=== PATIENT | male | born 1950 | race Caucasian/White ===

== ENCOUNTER 2018-03-11 11:51 | Outpatient (REF) | payer MEDICARE, SELFPAY ==
[2018-03-12 00:04] LABS: COMMENT (LAB VIEW ONLY) 425.42 mg/dL; Microalb ug/mg Crea 4.8 ug/mg Cr
== END 2018-03-11 11:52 ==
LOC: NCHCN 11:51
PROVIDERS: PCP Internal Medicine; Visit Provider Internal Medicine
DX: E11.9 Type 2 diabetes mellitus without complications (principal)
CPT/HCPCS: 82043; 82570

== ENCOUNTER 2018-06-17 09:38 | Outpatient (REF) | payer MEDICARE, SELFPAY ==
[2018-06-17 20:04] LABS: ALT 47 U/L (12-78); Anion Gap 7.5 mmol/L (3-11); BUN 16 mg/dL (7-18); CO2 29.5 mmol/L (21.0-32.0); Calcium 9.1 mg/dL (8.5-10.1); Chloride 106 mmol/L (98-107); Cholesterol 146 mg/dL (50-200); Glucose 139 mg/dL (70-100); HDL Cholesterol 47 mg/dL (40-60); LDL CHOLESTEROL 85 mg/dL (<100); Potassium 4.2 mmol/L (3.5-5.1); Sodium 143 mmol/L (136-145); Triglyceride 73 mg/dL (30-150)
[2018-06-17 20:15] LABS: Creatine Kinase 131 U/L (39-308)
== END 2018-06-17 09:58 ==
LOC: NCHCN 09:38
PROVIDERS: PCP Internal Medicine; Visit Provider Internal Medicine
DX: E78.5 Hyperlipidemia, unspecified (principal)
CPT/HCPCS: 80048; 80061; 82550; 83721; 84460

== ENCOUNTER 2019-03-20 22:26 | Outpatient (REF) | payer MEDICARE, SELFPAY ==
[2019-03-20 19:41] LABS: Anion Gap 7.8 mmol/L (3-11); BUN 19 mg/dL (7-18); C-Reactive Protein 0.05 mg/dL (0.0-0.3); CO2 30.2 mmol/L (21.0-32.0); CREATININE 1.28 mg/dL (0.70-1.30); Calcium 7.7 mg/dL (8.5-10.1); Chloride 106 mmol/L (98-107); Creatine Kinase 165 U/L (39-308); Estimated GFR 56.06 (mL/min/1.73m2); Glucose 113 mg/dL (70-100); Potassium 4.2 mmol/L (3.5-5.1); Sodium 144 mmol/L (136-145)
[2019-03-20 20:06] LABS: ESR 5 mm/hr (1-20)
== END 2019-03-20 22:46 ==
LOC: NCHCN 22:26
PROVIDERS: PCP Internal Medicine; Visit Provider Internal Medicine
DX: E11.9 Type 2 diabetes mellitus without complications (principal); E78.5 Hyperlipidemia, unspecified; M79.10 Myalgia, unspecified site
CPT/HCPCS: 80048; 82550; 85652; 86140

== ENCOUNTER 2019-07-25 12:19 | Outpatient (REF) | payer MEDICARE, SELFPAY ==
[2019-07-25 20:00] LABS: Abs Immature Grans 0.01 k/cumm (0.0-0.09); Absolute Basophil Count 0.04 k/cumm (0.0-0.2); Absolute Eosinophil Count 0.14 k/cumm (0.0-0.7); Absolute Lymphocyte Count 1.52 k/cumm (1.2-3.4); Absolute Neutrophil Count 2.78 k/cumm (1.2-6.7); Basophils % 0.8; Eosinophils % 2.8; HCT 45.1 % (40.0-50.0); HGB 15.1 g/dL (13.5-17.5); Immature Grans % 0.2 %; Lymphocytes % 30.5; Mean Corp. HGB Concentration 33.5 g/dL (32.0-36.0); Mean Corpuscular Hemoglobin 29.7 pg (27.0-33.0); Mean Corpuscular Volume 88.8 fL (80-95); Mean Platelet Volume 10.8 fL (8.0-11.0); Neutrophils % 55.7; Platelet Count 176 x1000/uL (130-400); RBC 5.08 m/cumm (4.50-6.00); RBC Distribution Width 13.5 % (11.8-14.1); White Blood Cell Count 4.99 k/cumm (4.4-10.8)
[2019-07-25 20:08] LABS: ALT 50 U/L (16-63); AST 23 U/L (15-37); Albumin 4.2 g/dL (3.4-5.0); Alkaline Phosphatase 69 U/L (46-116); Anion Gap 10.2 mmol/L (3-11); BUN 18 mg/dL (7-18); Bilirubin, Total 1.1 mg/dL (0.2-1.0); CO2 27.8 mmol/L (21.0-32.0); CREATININE 1.23 mg/dL (0.70-1.30); Calcium 9.3 mg/dL (8.5-10.1); Chloride 105 mmol/L (98-107); Estimated GFR 58.69 (mL/min/1.73m2); Glucose 128 mg/dL (74-106); Potassium 4.1 mmol/L (3.5-5.1); Sodium 143 mmol/L (136-145)
[2019-07-28 11:23] LABS: PSA, Screening 1.3 ng/mL (0.0-4.5)
== END 2019-07-25 12:39 ==
LOC: NCHCN 12:19
PROVIDERS: PCP Internal Medicine; Visit Provider Physician Assistant
DX: M79.10 Myalgia, unspecified site (principal); M54.5 Low back pain; Z12.5 Encounter for screening for malignant neoplasm of prostate; N40.0 Benign prostatic hyperplasia without lower urinary tract symptoms
CPT/HCPCS: 80053; 84153; 85025

== ENCOUNTER 2019-10-06 09:02 | Outpatient (REF) | payer MEDICARE, SELFPAY | END 2019-10-06 09:22 | LOC: NCHCN 09:02 | PROVIDERS: PCP Internal Medicine; Visit Provider Internal Medicine | DX: F52.21 Male erectile disorder (principal) | CPT/HCPCS: 84402; 84403 ==

== ENCOUNTER 2019-10-09 10:26 | Outpatient (REF) | payer MEDICARE, SELFPAY ==
[2019-10-12 16:41] LABS: Testosterone, Free 6.14 ng/dL (3.47-13.0); Testosterone, Total 341 ng/dL (240-950)
== END 2019-10-09 10:46 ==
LOC: NCHCN 10:26
PROVIDERS: PCP Internal Medicine; Visit Provider Internal Medicine
DX: F52.21 Male erectile disorder (principal)
CPT/HCPCS: 84402; 84403

== ENCOUNTER 2020-04-06 00:41 | Outpatient (CLI) | payer MEDICARE, MEDICAID, SELFPAY ==
--- NOTE | 2020-04-06 10:39 | DI.RAD_ITS ---
EXAM: XR FOOT LT COMPLETE CLINICAL HISTORY: LT FOOT AND ANKLE PAIN,M79.672,M25.572, INJURY, SWELLING, BRUISE, ? FX TECHNIQUE: COMPARISON: CR XR ANKLE LT COMPLETE from 04/06/2020 FINDINGS: Three views of the foot and three views of the ankle were obtained. The ankle mortise is well mainta ined. Small accessory ossicles noted adjacent to the medial malleolus. Mild marginal osteophyte for mation of joints of the ankle. 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 There is no evidence of an acute fracture or dislocation involving the foot or ankle. IMPRESSION: RADIATION DOSE DELIVERED: Total DLP
== END 2020-04-06 01:01 ==
PROVIDERS: PCP Internal Medicine; Visit Provider Physician Assistant
DX: M79.672 Pain in left foot (principal); M85.572 Aneurysmal bone cyst, left ankle and foot; M19.072 Primary osteoarthritis, left ankle and foot
CPT/HCPCS: 73610; 73630

== ENCOUNTER 2020-05-07 04:50 | Outpatient (CLI) | payer MEDICARE, MEDICAID, SELFPAY ==
--- NOTE | 2020-05-07 11:20 | DI.MRI_ITS ---
EXAM: MR LOWER JOINT LT WO CLINICAL HISTORY: LT ANKLE PAIN,M25.572,S/P INJURY TECHNIQUE: Multiplanar multisequence MRI was performed without intravenous contrast. COMPARISON: CR XR ANKLE LT COMPLETE from 04/06/2020 FINDINGS: BONES/JOINTS: No acute fracture. Marrow edema is seen in the distal fibula and the proximal talus. No bone lesions identified. The talar dome is smooth. The ankle mortise is maintained. No joint effus ion is present. There is hyperintense signal seen in the os trigonum and the adjacent talus. LIGAMENTS: The tibiofibular and calcaneofibular ligaments are intact. The talofibular ligaments are i ntact. The deltoid ligament is intact. The syndesmosis is unremarkable. Sinus tarsi is normal. MUSCULOTENDINOUS STRUCTURES: Achilles tendon: There is linear increased signal seen in the Achilles tendon which may represent a p artial tear. Plantar fascia: Unremarkable. Anterior Extensor tendons: Unremarkable. Posterior Tibialis: Unremarkable. Flexor Digitorum longus: Unremarkable. Flexor Hallicus longus: Unremarkable. Peroneus longus: There is some fluid around the peroneus longus tendon which may represent a tenosyno vitis. Peroneus brevis:Unremarkable. SOFT TISSUES: Mild edema seen in the soft tissues laterally. OTHER FINDINGS: None. IMPRESSION: 1. No evidence of an occult fracture. 2. 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 3. Fluid around the peroneus longus tendon which may represent a tenosynovitis. 4. Hyperintense linear signal in the Achilles tendon which may represent a partial tear. DATA REPOSITORY:
== END 2020-05-07 05:10 ==
PROVIDERS: PCP Internal Medicine; Visit Provider Physician Assistant
DX: M25.572 Pain in left ankle and joints of left foot (principal); R93.6 Abnormal findings on diagnostic imaging of limbs
CPT/HCPCS: 73721

== ENCOUNTER 2020-06-21 16:55 | Outpatient (REF) | payer MEDICARE, MEDICAID, SELFPAY ==
[2020-06-21 19:42] LABS: ALT 52 U/L (16-63); Anion Gap 7.2 mmol/L (3-11); BUN 26 mg/dL (7-18); CO2 25.8 mmol/L (21.0-32.0); CREATININE 1.41 mg/dL (0.70-1.30); Calcium 8.9 mg/dL (8.5-10.1); Chloride 108 mmol/L (98-107); Estimated GFR 49.99 (mL/min/1.73m2); Glucose 121 mg/dL (74-106); LDL CHOLESTEROL 70 mg/dL (<100); Potassium 3.8 mmol/L (3.5-5.1); Sodium 141 mmol/L (136-145)
== END 2020-06-21 17:15 ==
LOC: NCHCN 16:55
PROVIDERS: PCP Internal Medicine; Visit Provider Internal Medicine
DX: M25.572 Pain in left ankle and joints of left foot (principal); N40.0 Benign prostatic hyperplasia without lower urinary tract symptoms; E11.9 Type 2 diabetes mellitus without complications; I10 Essential (primary) hypertension
CPT/HCPCS: 80048; 83721; 84460

== ENCOUNTER 2021-06-27 18:07 | Outpatient (REF) | payer MEDICARE, MEDICAID, SELFPAY ==
[2021-06-27 19:52] LABS: ALT 51 U/L (16-63); Anion Gap 9.5 mmol/L (3-11); BUN 20 mg/dL (7-18); CO2 27.5 mmol/L (21.0-32.0); CREATININE 1.1 mg/dL (0.70-1.30); Calcium 9.2 mg/dL (8.5-10.1); Chloride 104 mmol/L (98-107); Glucose 118 mg/dL (74-106); LDL CHOLESTEROL 60 mg/dL (<100); Potassium 4.2 mmol/L (3.5-5.1); Sodium 141 mmol/L (136-145)
== END 2021-06-27 18:08 | disposition home or self-care (01) ==
LOC: NCHCN 18:07
PROVIDERS: PCP Internal Medicine; Visit Provider Internal Medicine
DX: I10 Essential (primary) hypertension (principal); E11.9 Type 2 diabetes mellitus without complications
CPT/HCPCS: 80048; 83721; 84460

== ENCOUNTER 2021-12-26 13:08 | Outpatient (REF) | payer MEDICARE, MEDICAID, SELFPAY ==
[2021-12-26 19:38] LABS: COMMENT (LAB VIEW ONLY) 206.25 mg/dL; Microalb ug/mg Crea 6.3 ug/mg Cr
== END 2021-12-26 13:09 | disposition home or self-care (01) ==
LOC: NCHCN 13:08
PROVIDERS: PCP Internal Medicine; Visit Provider Internal Medicine
DX: I10 Essential (primary) hypertension (principal); E11.9 Type 2 diabetes mellitus without complications; N18.2 Chronic kidney disease, stage 2 (mild)
CPT/HCPCS: 82043; 82570

== ENCOUNTER 2022-07-10 18:13 | Outpatient (REF) | payer MEDICARE, SELFPAY ==
[2022-07-10 19:24] LABS: Anion Gap 6.1 mmol/L (3-11); BUN 18 mg/dL (7-18); CO2 30.9 mmol/L (21.0-32.0); CREATININE 1.1 mg/dL (0.70-1.30); Calcium 9.4 mg/dL (8.5-10.1); Calculated LDL 62 mg/dL (<100); Chloride 105 mmol/L (98-107); Cholesterol 129 mg/dL (<200); Estimated GFR 72.22 (mL/min/1.73m2); Glucose 116 mg/dL (74-106); HDL Cholesterol 48 mg/dL (40-60); Potassium 3.6 mmol/L (3.5-5.1); Sodium 142 mmol/L (136-145); Triglyceride 95 mg/dL (<150)
== END 2022-07-10 18:14 | disposition home or self-care (01) ==
LOC: NCHCN 18:13
PROVIDERS: PCP Internal Medicine; Visit Provider Internal Medicine
DX: E11.9 Type 2 diabetes mellitus without complications (principal); E78.5 Hyperlipidemia, unspecified; K40.90 Unilateral inguinal hernia, without obstruction or gangrene, not specified as recurrent; M47.892 Other spondylosis, cervical region
CPT/HCPCS: 80048; 80061

== ENCOUNTER 2023-07-12 14:08 | Outpatient (REF) | payer MEDICARE, MEDICAID, SELFPAY ==
[2023-07-12 19:32] LABS: Anion Gap 5.1 mmol/L (3-11); BUN 21 mg/dL (7-18); CO2 30.9 mmol/L (21.0-32.0); CREATININE 1.1 mg/dL (0.70-1.30); Calcium 9.3 mg/dL (8.5-10.1); Calculated LDL 47 mg/dL (<100); Chloride 107 mmol/L (98-107); Cholesterol 100 mg/dL (<200); Estimated GFR 71.77 (mL/min/1.73m2); Glucose 143 mg/dL (74-106); HDL Cholesterol 44 mg/dL (40-60); Potassium 4.1 mmol/L (3.5-5.1); Sodium 143 mmol/L (136-145); Triglyceride 48 mg/dL (<150)
== END 2023-07-12 14:09 | disposition home or self-care (01) ==
LOC: NCHCN 14:08
PROVIDERS: PCP Internal Medicine; Visit Provider Internal Medicine
DX: I10 Essential (primary) hypertension (principal); R73.09 Other abnormal glucose
CPT/HCPCS: 80048; 80061; 83036

== ENCOUNTER 2023-10-19 20:43 | Outpatient (REF) | payer OTHER, MEDICAID, MEDICARE, SELFPAY ==
[2023-10-19 21:19] LABS: Bilirubin Negative (Negative); Blood Negative (Negative); Clarity Sl Cloudy (Clear); Glucose Negative (Negative); Ketones Trace mg/dL (Negative); Leukocyte Esterase Negative (Negative); Nitrite Negative (Negative); pH 7.5 (5-8)
[2023-10-19 23:47] LABS: Bacteria Rare HPF (Negative); C & S Indicated? C&S Done As Ordered; Casts Negative LPF (Negative); Crystals Negative HPF (Negative); Epithelial Cells Negative HPF (Negative); Mucus Negative (Negative); RBC Negative HPF (0-2); WBC Negative HPF (0-5)
== END 2023-10-19 20:44 | disposition home or self-care (01) ==
LOC: NCHCN 20:43
PROVIDERS: PCP Internal Medicine; Visit Provider Internal Medicine
DX: R82.998 Other abnormal findings in urine (principal); M54.89 Other dorsalgia
CPT/HCPCS: 81003; 81015; 87086

== ENCOUNTER 2024-06-20 13:02 | Outpatient (REF) | payer OTHER, MEDICAID, SELFPAY ==
[2024-06-20 18:57] LABS: MCH 29.6 pg (27.0-33.0); MCHC 32.6 % (32.0-36.0); MCV 91 fL (80-95); MPV 9.7 fL (8.0-11.0); Platelet Count 202 10^3/uL (130-400); RBC 5.06 10^6/uL (4.36-5.78); RDW 13.1 % (11.8-14.1); RDW-SD 43.6 fL; WBC 4.98 10^3/uL (4.4-10.8)
[2024-06-20 19:15] LABS: ALT 50 U/L (16-63); AST 32 U/L (15-37); Albumin 4.1 g/dL (3.4-5.0); Alkaline Phosphatase 99 U/L (46-116); Anion Gap 5.4 mmol/L (3-11); BUN 17 mg/dL (7-18); Bilirubin, Total 0.72 mg/dL (0.2-1.0); CO2 30.6 mmol/L (21.0-32.0); CREATININE 1.3 mg/dL (0.70-1.30); Calcium 9.5 mg/dL (8.5-10.1); Calculated LDL 65 mg/dL (<100); Chloride 106 mmol/L (98-107); Cholesterol 132 mg/dL (<200); Estimated GFR 58.37 (mL/min/1.73m2); Glucose 149 mg/dL (74-106); HDL Cholesterol 51 mg/dL (40-60); Potassium 4.5 mmol/L (3.5-5.1); Sodium 142 mmol/L (136-145); Total Protein 7.6 g/dL (6.4-8.2); Triglyceride 84 mg/dL (<150)
== END 2024-06-20 13:03 | disposition home or self-care (01) ==
LOC: NCHCN 13:02
PROVIDERS: PCP Internal Medicine; Visit Provider Internal Medicine
DX: E78.5 Hyperlipidemia, unspecified (principal)
CPT/HCPCS: 80053; 80061; 85027

== ENCOUNTER 2024-09-24 12:47 | Outpatient (REF) | payer MEDICARE, MEDICAID, SELFPAY ==
[2024-09-24 19:53] LABS: ESR 3 mm/hr (0-20)
[2024-09-24 20:05] LABS: Uric Acid 5.1 mg/dL (3.5-7.2)
[2024-09-24 20:14] LABS: C-Reactive Protein < 0.50 mg/dL (<or=0.5)
[2024-09-25 17:22] LABS: Rheumatoid Factor 28.6 IU/mL (<12.0)
[2024-09-26 10:38] LABS: Lyme Ab w Rflx to Lyme Confirm Negative (Negative)
== END 2024-09-24 12:48 | disposition home or self-care (01) ==
LOC: NCHCN 12:47
PROVIDERS: PCP Internal Medicine; Visit Provider Internal Medicine
DX: M65.841 Other synovitis and tenosynovitis, right hand (principal)
CPT/HCPCS: 85652; 84550; 86140; 86431; 86618

== ENCOUNTER 2025-05-27 17:37 | Outpatient (REF) | payer MEDICARE, MEDICAID, SELFPAY ==
[2025-05-27 20:27] LABS: HCT 44.1 % (40.0-50.0); HGB 14.8 g/dL (13.5-17.5); MCH 30.6 pg (27.0-33.0); MCHC 33.6 % (32.0-36.0); MCV 91 fL (80-95); MPV 10.2 fL (8.0-11.0); Platelet Count 192 10^3/uL (130-400); RBC 4.84 10^6/uL (4.36-5.78); RDW 12.9 % (11.8-14.1); RDW-SD 42.7 fL; WBC 5.86 10^3/uL (4.4-10.8)
[2025-05-27 20:40] LABS: ALT 36 U/L (16-63); AST 20 U/L (15-37); Albumin 4.4 g/dL (3.4-5.0); Alkaline Phosphatase 83 U/L (46-116); Anion Gap 7.2 mmol/L (3-11); BUN 18 mg/dL (7-18); Bilirubin, Total 0.9 mg/dL (0.2-1.0); CO2 30.8 mmol/L (21.0-32.0); Calcium 9.6 mg/dL (8.5-10.1); Chloride 104 mmol/L (98-107); Cholesterol 126 mg/dL (<200); Glucose 118 mg/dL (74-106); HDL Cholesterol 41 mg/dL (>or=40); Potassium 4.0 mmol/L (3.5-5.1); Sodium 142 mmol/L (136-145); Total Protein 7.5 g/dL (6.4-8.2)
[2025-05-27 20:46] LABS: Microalb ug/mg Crea 7.2 ug/mg Cr
[2025-05-28 18:18] LABS: PSA, Screening 2.0 ng/mL (<=6.5)
== END 2025-05-27 17:38 | disposition home or self-care (01) ==
LOC: NCHCN 17:37
PROVIDERS: PCP Internal Medicine; Visit Provider Physician Assistant
DX: E78.5 Hyperlipidemia, unspecified (principal); Z12.5 Encounter for screening for malignant neoplasm of prostate; I10 Essential (primary) hypertension; E11.9 Type 2 diabetes mellitus without complications
CPT/HCPCS: 80053; 80061; 84153; 85027; 82043; 82570